=== PATIENT | female | born 1945 | race African-American/Black ===

== ENCOUNTER 2019-10-05 17:21 | Inpatient (IN) | payer OTHER ==
[~2019-10-05] VITALS: Ht 152.4 cm; Wt 63.5 kg
[~2019-10-05 17:21] MED LIST: ANUSOL-HC25 MG RC; ARICEPT5 MG; HYDROCHLOROTHIA25 MG; LEVOXYL88 MCG; NAMENDA XR28 MG; ZOCOR20 MG
--- NOTE | 2019-10-05 17:35 | NUR ---
PACIENTE ALERTA Y ORIENTADA EN TY REYNALDO ESFERAS, EN COMPANIA DE MENSAH HIJA QUIEN REFIERE HEMOGLOBINA EN 9 HACE DOS SEMANAS, TAMBIEN REFIERE DEBILIDAD.
--- NOTE | 2019-10-05 18:15 | NUR ---
PACIENTE ALERTA Y ORIENTADA EN LAS REYNALDO ESFERAS, RN BOYKIN CORRINE MUESTRAS DE ELSA BAJO MEDIDAS ASEPTICAS, CATETERIZA PACIENTE PARA MUESTRAS DE ORINA BAJO MEDIDAS ESTERILES. ADMINISTRA MEDICAMENTOS ELIU ORDEN MEDICA. ORIENTA PACIENTE SOBRE PROCEDIMIENTOS Y MEDICACION, VERBALIZA ENTENDER.
== END 2019-10-07 17:30 | disposition home or self-care (01) | DRG 841 ==
LOC: ER 17:21 → MEDI 21:16
PROVIDERS: ADMIT Internal Medicine
PROC: 30233N1 Transfusion of Nonautologous Red Blood Cells into Peripheral Vein, Percutaneous Approach (ICD-10-PCS; principal; 2019-10-06)
DX: C90.02 Multiple myeloma in relapse (principal); E44.0 Moderate protein-calorie malnutrition; D63.0 Anemia in neoplastic disease; K52.89 Other specified noninfective gastroenteritis and colitis; E03.8 Other specified hypothyroidism; G30.0 Alzheimer's disease with early onset; F02.80 Dementia in other diseases classified elsewhere, unspecified severity, without behavioral disturbance, psychotic disturbance, mood disturbance, and anxiety; R31.0 Gross hematuria; E86.0 Dehydration; E87.8 Other disorders of electrolyte and fluid balance, not elsewhere classified; I12.9 Hypertensive chronic kidney disease with stage 1 through stage 4 chronic kidney disease, or unspecified chronic kidney disease; N18.3 Chronic kidney disease, stage 3 (moderate)